=== PATIENT | female | born 1995 | race Caucasian/White ===

== ENCOUNTER → 2022-02-08 | Day surgery (SDC) | payer BC ==
[2022-02-08 08:11] LABS: HEMOGLOBIN 12.4 gm/dl (12.3-15.3); RED BLOOD COUNT 4.03 M/UL (4.00-5.10); WHITE BLOOD COUNT 5.4 K/UL (4.5-11.0)
== END | disposition home or self-care (01) ==
LOC: OR 07:05
PROVIDERS: Obstetrics & Gynecology
DX: O02.1 Missed abortion (principal); Z20.822 Contact with and (suspected) exposure to COVID-19
CPT/HCPCS: 81001; 84702; 85025; 86850; 86900; 86901; J1100; J1885; J2001; J2250; J2405; J2704; J3010; J7030; J7120; U0002